=== PATIENT | male | born 1985 | race Caucasian/White ===

== ENCOUNTER 2020-01-06 12:13 | Emergency (ER) | payer OTHER, SELFPAY ==
[2020-01-06 12:14] VITALS: BP 135/82; PULSE 64; RESP 18; TEMP 37.1; O2SAT 100
--- NOTE | 2020-01-06 13:06 | ED.BACK ---
HPI - Back Pain/Injury General Chief Complaint: Back Pain/Injury Stated Complaint: right side pain from back to leg Time Seen by Provider: 01/06/20 12:49 Source: patient and RN notes reviewed Mode of arrival: ambulatory Limitations: no limitations History of Present Illness HPI Narrative: Patient presents today with a 3-day history of right-sided low back pain radiating to the right thigh and foot. Denies any injury, trauma, heavy lifting. Denies numbness or tingling in the extremities or genitals. Denies any loss of bowel or bladder control. States he had similar symptoms in the past. Currently rates his pain 6/10 and has been taking a leftover tramadol and ibuprofen without relief. Patient also had a massage 2 days ago without relief. MD elicited complaint: back pain Related Data Home Medications Medication Instructions Recorded Confirmed albuterol sulfate 1 inh INHALATION QID PRN 01/06/20 01/06/20 Allergies Allergy/AdvReac Type Severity Reaction Status Date / Time No Known Allergies Allergy Verified 01/06/20 12:28 Review of Systems Review of Systems: Narrative: CONSTITUTIONAL: Denies body aches, fever, chills, or sweats. EYES: Denies visual changes, redness, or discharge. ENT: Denies rhinorrhea, congestion, sore throat, or otalgia. CARDIOVASCULAR: Denies chest pain, palpitations, or edema. RESPIRATORY: Denies cough or dyspnea. GASTROINTESTINAL: Denies abdominal pain, nausea, vomiting, or diarrhea. GENITOURINARY: Denies dysuria or hematuria. SKIN: Denies rash, itching, or wounds. MUSCULOSKELETAL: Denies joint pain, or myalgia. +Right-sided low back pain NEUROLOGIC: Denies headache, numbness, tingling, or weakness. PSYCH: Denies depression or anxiety. PMFSH Comments At time of signature, I have reviewed and agree with nursing past medical, surgical, social and family history unless otherwise noted. Please see nursing chart for further information. There is no relevant family history pertinent to the presenting complaint Exam Narrative: Exam Narrative: GENERAL: Well-appearing, well-nourished, and in no acute distress. HEAD: Normocephalic, atraumatic. EYES: EOMI. No redness or drainage. Conjunctivae normal. ENT: Mucous membranes pink and moist. NECK: Normal AROM. CHEST: No respiratory distress. MUSCULOSKELETAL: Tenderness of lower lumbar spine, causing reproducible numbness to the right foot. Right-sided paraspinal muscle tenderness. Palpation of right SI causes reproducible pain to the right foot. Distal sensation intact. Capillary refill normal. Saddle sensation normal.Foot push and pulls normal. EXTREMITIES: Normal range of motion. No edema. SKIN: Warm, dry, no rash. Capillary refill normal. Normal skin turgor. NEURO: No focal deficits. Alert and oriented x3. Gait steady. PSYCH: Normal affect. No signs of depression or anxiety. Course Vital Signs Vital signs: Vital Signs Temperature 98.8 F 01/06/20 12:14 Pulse Rate 64 01/06/20 12:14 Respiratory Rate 18 01/06/20 12:14 Blood Pressure 135/82 01/06/20 12:14 Pulse Oximetry 100 01/06/20 12:14 Temperature 98.8 F 01/06/20 12:14 Pulse Rate 64 01/06/20 12:14 Respiratory Rate 18 01/06/20 12:14 Blood Pressure 135/82 01/06/20 12:14 Pulse Oximetry 100 01/06/20 12:14 Reviewed. Pt has been instructed to follow up with his PCP regarding his elevated blood pressure today. MDM - Back Pain/Injury Differential Diagnosis Differential diagnosis: Likely lumbar radiculopathy, sciatica and strain of lumbar region Critical Care Time Critical Care Time Critical Care Time: No Discharge Plan Discharge Clinical Impression: Acute right-sided back pain with sciatica Patient Disposition: Home, Self-Care Condition: Stable Instructions: Sciatica (ED) Additional Instructions: Please take the Flexeril and prednisone as directed. Do not drive within 8 hours of taking the Flexeril as it can make you drowsy. You ma
== END 2020-01-06 13:25 | disposition home or self-care (01) ==
PROVIDERS: Emergency Provider Nurse Practitioner
DX: M54.41 Lumbago with sciatica, right side (principal)
CPT/HCPCS: 99213; G0463